=== PATIENT | male | born 1970 ===

== ENCOUNTER 2017-01-22 14:47 | Emergency (ER) | payer OTHER ==
[~2017-01-22] VITALS: Ht 172.7 cm; Wt 94.3 kg
[~2017-01-22 14:47] MED LIST: CIPRO500 M1 PO; IBUPROFEN600 M1 PO; PREDNISONE 20MG20 MG PO; PREDNISONE20 M1 PO; VISTARIL25 M1 PO; VISTARIL25 MG PO
[2017-01-22 14:52] VITALS: BP 121/78
--- NOTE | 2017-01-22 15:34 | ED GENERAL ADULT ---
History of Present Illness General Chief Complaint: Lower Extremity Injury Stated Complaint: WORKER'S COMP, R LEG PAIN Source: patient Exam Limitations: no limitations Vital Signs & Intake/Output Vital Signs & Intake/Output Vital Signs Date Time Temp Pulse Resp B/P Pulse O2 O2 Flow FiO2 Ox Delivery Rate 01/22 1558 Room Air 01/22 1452 99.0 75 18 121/78 100 Room Air Allergies Coded Allergies: poison tarik extract (Intermediate, RASH 01/04/16) Reconcile Medications Ciprofloxacin HCl (Cipro) 500 MG TABLET 1 TAB PO BID PROSTATE INFECTION Hydroxyzine Pamoate (Vistaril) 25 MG CAPSULE 1 CAP PO TID PRN ITCHING Ibuprofen 600 MG TABLET 1 TAB PO Q6P PRN PAIN with food Ibuprofen 600 MG TABLET 1 TAB PO TID PRN PAIN with food Prednisone 20 MG TABLET 1 TAB PO DAILY POISON TARIK 3 A DAY FOR 3 DAYS THEN 2 A DAY FOR 3 DAYS THEN 1 DAY FOR 3 DAYS THEN 1/2 A DAY FOR 2 DAYS Triage Note: 46 Y/O MALE C/O PAIN BEHIND R CALF, ONSET TODAY WHILE AT WORK. 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 STATES CALF FEELS "HARD" SINCE THE PAIN STARTED. WORKMANS COMP COMPLETED. *PT WAS ALREADY EVAL'D TODAY AT [facility] FOR SAME HAS PAPERWORK WITH DX "STRAIN" AND D/C INSTRUCTIONS/WORK RESTRICTIONS* Triage Nurses Notes Reviewed? yes Onset: Abrupt Duration: hour(s): Timing: recent history HPI: 01/22/17 4:00 pm This is a 46-year-old male presents to the emergency department with sudden onset of severe right calf pain. The patient states he was in his usual state of health until approximately several hours ago when he felt a sudden pain and stinging in his right calf. He says that now when he stands he has severe pain to the right calf. He denies chest pain shortness of breath or other complaints. The onset of the symptoms was abrupt, the duration was just earlier today, the severity was significant; as his symptoms required him to come to the emergency department for care; he has no significant past medical history. On physical exam he does have significant tenderness and swelling to the right calf. He is able to dorsi and plantar flex the right foot. Diagnostic considerations include acute DVT and plantaris muscle rupture. Past History Travel History Traveled to [place] past 21 day No Medical History Any Pertinent Medical History? see below for history Neurological: NONE EENT: NONE Cardiovascular: NONE Respiratory: NONE Gastrointestinal: NONE Hepatic: NONE Renal: NONE Musculoskeletal: NONE Psychiatric: NONE Endocrine: NONE Tetanus Vaccine: 09/16/16 Surgical History Surgical History: non-contributory Psychosocial History What is your primary language Cook Islander Tobacco Use: Quit >30 days ago Family History Hx Contributory? No Review of Systems Review of Systems Constitutional: Denies: fever. EENTM: Reports: no symptoms. Respiratory: Reports: no symptoms. Cardiovascular: Reports: no symptoms. GI: Reports: no symptoms. Genitourinary: Reports: no symptoms. Musculoskeletal: Reports: see HPI. Skin: Reports: no symptoms. Neurological/Psychological: Reports: no symptoms. Hematologic/Endocrine: Reports: no symptoms. Immunologic/Allergic: Reports: no symptoms. Physical Exam Physical Exam General Appearance: alert, awake, anxious, mild distress Head: atraumatic, normal appearance Eyes: Bilateral: normal appearance, PERRL. Ears, Nose, Throat: normal pharynx, normal ENT inspection Neck: normal inspection, supple, full range of motion Respiratory: normal breath sounds, chest non-tender, no respiratory distress Cardiovascular: regular rate/rhythm Peripheral Pulses: 4+ dorsalis pedis (R) Back: normal range of motion Extremities: calf tenderness, tenderness Neurologic/Psych: no motor/sensory deficits, awake, alert, oriented x 3 Skin: intact, normal color, warm/dry Comments: On physical examination he has significant right-sided calf muscle tenderness. He is able to dorsi and plantar flex the right foot. Right cells pedis pulses intact Ultrasound Of the right calf was negative for DVT It did however show small intramuscular hematoma secondary to partial rupture of the plantaris muscle, tendon or adjacent medial gastrocnemius muscle. The patient was made nonweightbearing with crutches. He will follow-up with orthopedics and occupational medicine. No work this week. Ibuprofen as needed for pain. Core Measures ACS in differential dx? No CVA/TIA Diagnosis: No Severe Sepsis Present: No Septic Shock Present: No Progress Differential Diagnoses I considered the following diagnoses in my evaluation of the patient: [DVT, muscle strain, gastrocnemius muscle tear, Achilles tendon rupture, plantaris muscle rupture] Plan of Care: Orders Procedure Date/time Status Durable Medical Equipment 01/22 1915 Active US-SUPERFICIAL IMAGING EXTREMI 01/22 1622 Active US-DUPLEX VENOUS EXTREM UNI 01/22 1606 Active Initial ED EKG: none Departure Departure Disposition: HOME OR SELF CARE Condition: Stable Clinical Impression Primary Impression: Gastrocnemius muscle strain Referrals: PATIENT HAS NO PRIMARY CARE DR (PCP/Family) Departure Forms: Customer Survey Employee Industrial Accident General Discharge Information Prescriptions: Current Visit Scripts Ibuprofen 1 TAB PO TID PRN PAIN #30 TAB with food Critical Care Note Critical Care Note Critical Care Time: non-applicable
[2017-01-22] MEDS ORDERED: IBUPROFEN600 M1 PO (19:15)
--- NOTE | 2017-01-23 09:31 | ULTRASOUND REPORT ---
EXAMINATION: RIGHT LOWER EXTREMITY VENOUS ULTRASOUND CLINICAL INFORMATION: Sudden pain at right lower extremity calf. Suspected DVT. COMPARISON: None. TECHNIQUE: Doppler spectral analysis and color flow Doppler imaging was performed of the RIGHT lower extremity. Compression and augmentation maneuvers were performed. FINDINGS: The right common femoral, femoral, popliteal and calf veins were well-identified and normal. They demonstrate normal compressibility and color fill-in. There is no Oconnor's cyst present. IMPRESSION: No evidence for right lower extremity deep vein thrombosis. .
--- NOTE | 2017-01-23 09:31 | ULTRASOUND REPORT ---
EXAMINATION: US SUPERFICIAL IMAGING, EXTREMITY CLINICAL INFORMATION: 46-year-old male presented with sudden onset right-sided calf pain. Suspected plantaris muscle rupture. COMPARISON: None TECHNIQUE: Targeted ultrasound of the right calf was performed corresponding to the site of pain. FINDINGS: Corresponding to the site of the right mid calf pain medially, there is a small focal fluid collection identified, measures approximately 1.2 x 0.8 x 0.3 cm, located superficially within the muscle, most consistent with small intramuscular hematoma, may represent changes secondary to partial rupture of the plantaris muscle, tendon or adjacent medial gastrocnemius muscle. For further full detail evaluation, follow-up MRI may be considered, if clinically appropriate. IMPRESSION: At the site of the right mid calf pain, there is a 1.2 cm maximum dimension small focal fluid collection identified within the muscle, may represent small intramuscular hematoma secondary to partial rupture of the plantaris muscle, tendon or adjacent medial gastrocnemius muscle. Follow-up MRI of the calf including the entire right leg, may be considered for further full detail evaluation, if clinically appropriate.
== END 2017-01-22 19:25 ==
LOC: ERH 14:47
DX: S86.811A Strain of other muscle(s) and tendon(s) at lower leg level, right leg, initial encounter (principal); X58.XXXA Exposure to other specified factors, initial encounter; Y92.9 Unspecified place or not applicable; Y93.9 Activity, unspecified
CPT/HCPCS: 76881

== ENCOUNTER 2017-04-03 23:16 | Emergency (ER) | payer OTHER ==
[~2017-04-03] VITALS: Ht 195.6 cm; Wt 99.8 kg
[2017-04-03 23:28] VITALS: BP 109/69
[2017-04-03] MEDS ORDERED: PREDNISONE20 M1 PO (23:45)
[2017-04-03] MEDS ORDERED: HYDROXYZINE HCL25 M2 PO (23:45)
--- NOTE | 2017-04-03 23:45 | ED SKIN/ALLERGY COMPLAINT ---
History of Present Illness General Chief Complaint: Skin Rash/ Abcess Stated Complaint: "PER PT POSION ISELA ALL OVER Source: patient, family, old records Exam Limitations: language barrier Vital Signs & Intake/Output Vital Signs & Intake/Output Vital Signs Date Time Temp Pulse Resp B/P B/P Pulse O2 O2 Flow FiO2 Mean Ox Delivery Rate 04/03 2328 98.3 87 16 109/69 98 Room Air Room Air ED Intake and Output 04/04 0000 04/03 1200 Intake Total 0 Output Total Balance 0 Intake, Oral 0 Patient 99.79 kg Weight Allergies Coded Allergies: poison isela extract (Intermediate, RASH 04/03/17) Reconcile Medications Hydroxyzine HCl 25 MG TABLET 1 TAB PO Q12P PRN PRURITIS Prednisone 20 MG TABLET 1 TAB PO BID POISON ISELA Triage Note: PT TO TRIAGE FOR POISON ISELA RASH TO BILATERAL ARMS FOR TWO DAYS. DENIES PAIN Triage Nurses Notes Reviewed? yes HPI: 46M NO PMH, RECURRENT POISON ISELA, RETURNS WITH SEVERE POISON ISELA RASH ON HIS RIGHT ARM, CHEST, ABDOMEN. DENIES FEVER OR CHILLS. REPORTS SEVERE PRURITIS. (HUEY OTTO MD) Past History Travel History Traveled to [place] past 21 day No Medical History Any Pertinent Medical History? see below for history Neurological: NONE EENT: NONE Cardiovascular: NONE Respiratory: NONE Gastrointestinal: NONE Hepatic: NONE Renal: NONE Musculoskeletal: NONE Psychiatric: NONE Endocrine: NONE Blood Disorders: NONE Cancer(s): NONE Tetanus Vaccine: 09/16/16 Surgical History Surgical History: non-contributory Psychosocial History What is your primary language [facility] Tobacco Use: Quit >30 days ago ETOH Use: denies use Illicit Drug Use: denies illicit drug use Family History Hx Contributory? No (HUEY OTTO MD) Review of Systems Review of Systems Constitutional: Reports: see HPI. EENTM: Reports: no symptoms. Respiratory: Reports: no symptoms. Cardiovascular: Reports: no symptoms. GI: Reports: no symptoms. Genitourinary: Reports: no symptoms. Musculoskeletal: Reports: no symptoms. Skin: Reports: see HPI. Neurological/Psychological: Reports: no symptoms. Hematologic/Endocrine: Reports: no symptoms. Immunologic/Allergic: Reports: no symptoms. All Other Systems: Reviewed and Negative (HUEY OTTO MD) Physical Exam Physical Exam General Appearance: well developed/nourished, no apparent distress, alert Head: normal appearance Eyes: Bilateral: normal appearance. Ears, Nose, Throat: normal ENT inspection Neck: normal inspection, supple Respiratory: normal breath sounds, no respiratory distress Cardiovascular: regular rate/rhythm Gastrointestinal: soft, non-tender Back: normal range of motion Extremities: normal inspection, no edema Neurologic/Psych: no motor/sensory deficits Skin: DIFFUSE URTICARIAL RASH ON RIGHT ARM, CHEST, ABDOMEN (HUEY OTTO MD) Progress Differential Diagnosis: abscess/cellulitis, allergic reaction, anaphylaxis, angioedema, asthma, contact dermatitis, drug reaction, erythema multiforme, lyme disease, meningitis/sepsis, piyriasis rosea, RMSF, scarlet fever, shingles, syphilis/gonococcemia, toxic shock syndrome, urticaria Plan of Care: Current Medications Sig/Kevin Start time Last Medication Dose Stop Time Status Admin Hydroxyzine HCl 25 MG ONCE ONE 04/03 2345 UNVr 04/04 (Atarax) 04/03 2346 0001 Methylprednisolone 125 MG ONCE ONE 04/03 2345 UNVr 04/04 (Solu Medrol) 04/03 2346 0001 WILL GIVE SOLUMEDROL 125MG, ATARAX, DISCHARGE ON PREDNISONE (HUEY OTTO MD) Departure Departure Time of Disposition: 21 Disposition: HOME OR SELF CARE Condition: Stable Clinical Impression Primary Impression: Poison isela dermatitis Referrals: PATIENT HAS NO PRIMARY CARE DR (PCP/Family) Departure Forms: Customer Survey General Discharge Information Prescriptions: Current Visit Scripts Prednisone 1 TAB PO BID #10 TAB Hydroxyzine HCl 1 TAB PO Q12P PRN PRURITIS #30 TAB (HUEY OTTO MD) Resident Co-Sign Statement Statement: ED Attending supervision documentation- [] I saw and evaluated the patient. I have also reviewed all the pertinent lab results and diagnostic results. I agree with the findings and the plan of care as documented in the Resident's documentation. [X] I have reviewed the ED Record and agree with the Resident's documentation. [] Additions or exceptions (if any) to the Resident's note and plan are summarized below: [] (JUAN LUIS NAVARRO,JOAO)
== END 2017-04-04 00:27 ==
LOC: ERH 23:16
DX: L23.7 Allergic contact dermatitis due to plants, except food (principal)
CPT/HCPCS: J2930

== ENCOUNTER → 2018-06-24 | Day surgery (SDC) | payer OTHER ==
[~2018-06-24] MED LIST changes: +HYDROXYZINE HCL25 M2 PO
--- NOTE | 2018-06-24 08:08 | Operative Report ---
Operative/Inv Procedure Report Surgery Date: 06/24/18 Name of Procedure: Right trigger thumb release Pre-Operative Diagnosis: Right trigger thumb Post-Operative Diagnosis: Right trigger thumb Estimated Blood Loss: scant Surgeon/Respite Coordinator: Bg Ríos MD Anesthesia: moderate sedation Complications: None Condition: Stable to PACU Operative Indication: This is a 47-year-old male with long-standing nature, has failed conservative care. Risks and benefits of the procedure were discussed with the patient at length. Risks include but are not limited to nerve damage, muscle damage, infection, blood loss, blood clots, pulmonary embolus, and even . The patient agreed to the above risks and elected to proceed with surgery. Operative/Procedure Note Note: The patient was taken to the operating room and placed supine on the operating room table. A tourniquet was applied to the arm above the elbow. The upper extremity was prepped and draped in the normal sterile fashion. The patient received IV antibiotics prior to incision. A time out was performed and the site marking was also visualized prior to incision. An Esmarch was used to exsanguinate the extremity. The tourniquet was inflated. An oblique incision was made overlying the MP crease of the thumb. Care was taken to protect the neurovascular structures. The radial digital artery and nerve were identified and protected. An incision was made longitudinally over the A1 ritika. Tenotomy scissors were used to complete the release. The thumb was taken through a range of motion and no triggering was noted. Once the release was complete the wound was copiously irrigated. The incision was closed with 3-0 nylon suture in a simple interrupted fashion. 0.25% Marcaine was then injected to anesthetize the wound. A dry sterile dressing was applied and the patient was transferred to PACU in stable condition.
== END ==
LOC: STS 01:55
DX: M65.311 Trigger thumb, right thumb (principal); Z87.891 Personal history of nicotine dependence
CPT/HCPCS: J0131; J0690; J2250; J3490